=== PATIENT | male | born 1955 | race Caucasian/White ===

== ENCOUNTER 2022-09-20 01:36 | Day surgery (SDC) | payer MEDICARE, SELFPAY ==
[2022-09-09 11:35] VITALS: BMI 32.5
[2022-09-20 09:06] VITALS: BP 153/85; PULSE 62; RESP 18; TEMP 36.1; O2SAT 98
[2022-09-20] MEDS: LACTATED RINGERS 1,000 ML 150 ML IV CONT (09:10)
--- NOTE | 2022-09-20 09:24 | WPDANESEPPF ---
Anes - Initial Pre Proc Eval Procedure: Operation Date: 09/20/22 10:00 Proposed Procedures p Screening Colonoscopy - Alfredo Galindo MD Date/Time: 09/20/22 09:24 Surgeon: Alfredo Galindo MD Pre Op Diagnosis: family hx colon ca Patient Data Age: 67 Gender: M Height: 1.83 m Weight: 107.7 kg Last Vital Signs Temp 36.1 C L 09/20/22 09:06 Pulse 62 09/20/22 09:06 Resp 18 09/20/22 09:06 BP 153/85 H 09/20/22 09:06 Pulse Ox 98 09/20/22 09:06 O2 Del Method Room Air 09/20/22 09:06 Allergies Allergy/AdvReac Type Severity Reaction Status Date / Time Penicillins Allergy Intermediate Unknown Verified 09/20/22 09:05 Sulfa (Sulfonamide Allergy Rash Verified 09/20/22 09:05 Antibiotics) Home Medications Medication Instructions Recorded Confirmed Type atorvastatin 20 mg tablet 20 mg PO DAILY 09/09/22 09/20/22 History betamethasone, augmented 0.05 % 1 applic topical PRN PRN Itching 09/09/22 09/20/22 History topical cream losartan 50 mg-hydrochlorothiazide 1 tablet PO DAILY 09/09/22 09/20/22 History 12.5 mg tablet Patient hx anesthesia problems: none Family hx anesthesia problems: none Results Review: All pre-operative results and documents have been reviewed as part of the pre-operative evaluation. [facility] Social History Social History Smoking status: Never smoker Alcohol intake: current Drinks per week: 5 Alcohol use details: [facility] Substance use: never Substance use type: does not use Living arrangements: with family Spiritual care concerns: No Anes - Eval Final PreProcedure Day of Procedure 09/20/22 09:24 Patient weight: obese Heart: regular rate and rhythm Lungs: clear to auscultation Airway: Mallampati scale class II Neurological: alert and oriented Last oral intake: >/= 8 hours ASA classification: II Emergent: no Anesthetic plan: proceed Anesthesia type and monitoring: general GIVS and standard monitoring Results Review: All pre-operative results and documents have been reviewed as part of the pre-operative evaluation. Informed Consent: The patient's anesthetic plan and its attendant risks and benefits were discussed with the patient/family/POA. Questions were solicited and answers provided to the satisfaction of the patient/family/POA.
--- NOTE | 2022-09-20 09:53 | PM.HPGS ---
History of Present Illness History of Present Illness Consent: Risks, benefits, and alternatives have been discussed and questions answered. Patient agrees to proceed with procedure. Chief complaint: family hx colon ca Narrative: Josué Padron is a 67 year old male Presents for screening colonoscopy. Patient's current weight appetite and bowel movements are normal. Patient denies abdominal pain. He has had no bleeding. Family history is significant his mother had colon cancer. Patient presents today for screening colonoscopy Review of Systems Review of Systems: review of systems noncontributory. [facility] Social History Social History Smoking status: Never smoker Alcohol intake: current Drinks per week: 5 Alcohol use details: [employer] Substance use: never Substance use type: does not use Living arrangements: with family Spiritual care concerns: No Meds Home Medications and Allergies Home Medications Medication Instructions Recorded Confirmed Type atorvastatin 20 mg tablet 20 mg PO DAILY 09/09/22 09/20/22 History betamethasone, augmented 0.05 % 1 applic topical PRN PRN Itching 09/09/22 09/20/22 History topical cream losartan 50 mg-hydrochlorothiazide 1 tablet PO DAILY 09/09/22 09/20/22 History 12.5 mg tablet Allergies Allergy/AdvReac Type Severity Reaction Status Date / Time Penicillins Allergy Intermediate Unknown Verified 09/20/22 09:05 Sulfa (Sulfonamide Allergy Rash Verified 09/20/22 09:05 Antibiotics) Vital Signs Vital Signs - 24 hr 09/20/22 09:06 Temperature 96.9 F L Pulse Rate 62 Respiratory Rate 18 Blood Pressure 153/85 H Pulse Oximetry 98 Oxygen Delivery Room Air Exam Narrative: Physical exam reveals patient to be alert. Vital signs stable. HEENT exam is unremarkable. Patient is anicteric. Lungs are clear to auscultation and percussion. Heart is without murmur or extra sounds. Abdomen bowel sounds present soft nontender with no organomegaly. Digital external rectal exam is normal. Assessment and Plan Assessment and plan (1) Family history of colon cancer in mother: Code(s): Z80.0 - Family history of malignant neoplasm of digestive organs Status: Acute Assessment and Plan: Patient's mother has had colon cancer. Plan for surveillance colonoscopy at 5 year intervals.
[2022-09-20 11:05] VITALS: BP 112/69; PULSE 60; RESP 16; O2SAT 100
[2022-09-20 11:15] VITALS: BP 122/74; PULSE 58; RESP 16; O2SAT 100
[2022-09-20 11:25] VITALS: BP 130/87; PULSE 55; RESP 20; O2SAT 100
== END 2022-09-20 11:36 | disposition home or self-care (01) ==
PROVIDERS: PCP Family Medicine; Visit Provider Internal Medicine Gastroenterology
PROC: 0DJD8ZZ Inspection of Lower Intestinal Tract, Via Natural or Artificial Opening Endoscopic (ICD-10-PCS; CPT 45378; principal; 2022-09-20 10:00)
DX: Z12.11 Encounter for screening for malignant neoplasm of colon (principal); K64.8 Other hemorrhoids; Z80.0 Family history of malignant neoplasm of digestive organs; E66.9 Obesity, unspecified; Z68.32 Body mass index [BMI] 32.0-32.9, adult
CPT/HCPCS: G0105; J2704; J7120